=== PATIENT | female | born 1985 | race Caucasian/White ===

== ENCOUNTER → 2023-12-09 | Outpatient (CLI) | payer BC, SELFPAY ==
--- NOTE | 2023-12-09 10:05 | RAD_ITS ---
STUDY: X-RAY - LEFT SHOULDER REASON FOR EXAM: Female, 38 years old. Left shoulder pain. TECHNIQUE: 4 views of the left shoulder. COMPARISON: None. FINDINGS: Normal glenohumeral articulation. Normal acromioclavicular joint. Normal acromion. Normal humeral head and visualized proximal humerus. The soft tissue structures are unremarkable. There is no demonstrated fracture. Normal visualized pulmonary apex. There are sternal cerclage wires in place. RAD/Shoulder min 2 Views IMPRESSION: Normal x-ray examination of the left shoulder. Electronically Signed: Cory Edwards MD at 11:11 EDT ,
--- NOTE | 2023-12-09 10:05 | RAD_ITS ---
INDICATION: Chronic neck pain; evaluate for cervical ribs EXAMINATION/TECHNIQUE: X-RAY - XR Spine Cervical 4 or 5 Views COMPARISON: None. FINDINGS: VERTEBRAE: Preserved vertebral body height. No fracture. No spondylolisthesis. Preservation of the normal cervical lordosis. Mild multilevel facet arthropathy. DISCS: Mild multilevel degenerative disc disease and spondylosis. NECK SOFT TISSUES: No prevertebral soft tissue widening. LUNG APICES: Clear. RAD/Cerv Spine 2 or 3 Views IMPRESSION: No evidence of acute fracture or spondylolisthesis. Mild multilevel degenerative disc disease and spondylosis. Electronically Signed: Lukas Curry MD at 17:36 EDT ,
--- NOTE | 2023-12-09 12:53 | NEURO ---
NCS and/or EMG Patient Report Ordering Doctor: Jason Waters DATE OF SERVICE: 12/09/23 Swathi presents for electrodiagnostic testing of the upper limbs. She reports intermittent numbness and tingling in the hands, primarily in digits 1-3. She reports this is more prominent when exposed to cold. Electrodiagnostic findings: Right median motor nerve demonstrates normal distal latency, amplitude and conduction velocity. Left median motor nerve demonstrates normal distal latency, amplitude and conduction velocity. Ulnar motor response demonstrates normal distal latency and amplitude bilaterally with a drop in conduction of approximately 25% across the elbow bilaterally. Normal median and ulnar F?waves. Sensory responses are within normal limits. Needle EMG testing was performed in the upper limbs. All muscles tested showed no evidence of denervation with normal motor unit action potentials. Electrodiagnostic impression: This is an abnormal study of the upper limbs 1. 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 However, there are no clinical signs of cubital tunnel syndrome. 2. There were no electrodiagnostic findings suggestive of median neuropathy, i.e. carpal tunnel syndrome. 3. There is no electrodiagnostic evidence for brachial plexopathy or cervical radiculopathy Multi [facility] Codes Neurology Neurology Interp Codes: 36814-47 Musc test done w/n test comp (interp) (2) and 49427-81 Nrv cndj test 13/> studies (interp)
== END | disposition home or self-care (01) ==
LOC: PSN 09:52
PROVIDERS: PCP Nurse Practitioner Adult Health; Referring Provider Psychiatry & Neurology Neurology; Visit Provider Psychiatry & Neurology Neurology
DX: M54.2 Cervicalgia (principal); M79.641 Pain in right hand; M79.642 Pain in left hand
CPT/HCPCS: 72040; 73030; 95886; 95913